=== PATIENT | male | born 1955 | race African-American/Black ===

== ENCOUNTER 2017-01-21 15:28 | Emergency (ER) | payer MEDICAID ==
[~2017-01-21] VITALS: Ht 175.3 cm; Wt 72.0 kg
[2017-01-21] MEDS ORDERED: MORPHINE SULFATE 4 MG/ML CPJ (NOT FOR IM USE) IV STA (21:25)
[2017-01-21] MEDS ORDERED: SODIUM CHLORIDE 0.9% 1,000 ML IV ONE (21:25)
[2017-01-21] MEDS ORDERED: ONDANSETRON HCL 4MG/2ML VIAL IV STA (21:25)
[2017-01-21 22:01] LABS: BASOPHILS % 0.5 % (0.0-2.0); EOSINOPHILS % 0.1 % (0.0-5.0); HEMATOCRIT. 36.8 % (42.0-52.0); HEMOGLOBIN. 12.7 g/dL (14.0-18.0); LYMPHOCYTES % 20.3 % (20.0-50.0); MEAN CORPUSCULAR HEMOGLOBIN 31.7 pg (28.0-32.0); MEAN CORPUSCULAR VOLUME 91.7 fL (80.0-94.0); MONOCYTES % 7.3 % (2.0-8.0); NEUTROPHILS % 71.8 % (40.0-76.0); PLATELET 262 x1000/uL (130-400); RED BLOOD CELL COUNT 4.01 mill/uL (4.7-6.1)
[2017-01-21 22:05] LABS: INR 1.1; PROTHROMBIN TIME 10.9 sec
[2017-01-21 22:12] LABS: CARBON DIOXIDE 29 mEq/L (21-32); CHLORIDE 103 mEq/L (98-107)
[2017-01-21 23:22] VITALS: BP 121/78
== END 2017-01-21 23:24 | disposition home or self-care (01) ==
LOC: ER 16:20
DX: K52.9 Noninfective gastroenteritis and colitis, unspecified (principal); F17.200 Nicotine dependence, unspecified, uncomplicated; F12.10 Cannabis abuse, uncomplicated
CPT/HCPCS: 36415; 74176; 80053; 83690; 85025; 85610; 96361; 96374; 96375; 99285; J2270; J2405; J7030

== ENCOUNTER 2024-11-05 04:42 | Inpatient (IN) | payer OTHER, MEDICAID, MEDICARE ==
[~2024-11-05] VITALS: Ht 175.3 cm; Wt 61.2 kg
[~2024-11-05 04:42] MED LIST: ATOR20TA65 MT; CLOP75TA15 PO; LIP40 PO
[2024-11-05 05:55] LABS: HEMATOCRIT. 37.4 % (42.0-52.0); HEMOGLOBIN. 12.5 g/dL (14.0-18.0); MEAN CORPUSCULAR HEMOGLOBIN 29.3 pg (28.0-32.0); MEAN CORPUSCULAR HGB CONC 33.4 g/dL (31.0-37.0); MEAN CORPUSCULAR VOLUME 87.8 fL (80.0-94.0); MEAN PLATELET VOLUME 8.5 fl (7.4-10.4); PLATELET 358 x1000/uL (130-400); RED BLOOD CELL COUNT 4.26 mill/uL (4.7-6.1); RED CELL DISTRIBUTION WIDTH 13.1 % (11.6-14.6); WHITE BLOOD COUNT 21.2 x1000/uL (4.5-11.0)
[2024-11-05 06:19] LABS: CHLORIDE 95 mEq/L (98-107); POTASSIUM 5.2 mEq/L (3.5-5.1); SODIUM 132 mEq/L (136-145)
[2024-11-05 06:20] LABS: CALCIUM 9.7 mg/dL (8.7-10.4); CARBON DIOXIDE 23 mEq/L (21-32)
[2024-11-05 06:25] LABS: CREATININE 0.8 mg/dL (0.6-1.3); GLUCOSE 106 mg/dL (70-105); TROPONIN I HIGH SENSITIVITY 38 ng/L (3.0-53)
[2024-11-05] MEDS: MORPHINE SULFATE 4 MG/ML INJ (FOR IV/IM USE) IV ONE ×2 (06:28→07:38)
[2024-11-05 06:29] LABS: DIFFERENTIAL COMMENT 1
[2024-11-05 06:32] LABS: ETHANOL BLOOD < 10 mg/dL (<10); UREA NITROGEN BLOOD < 5 mg/dL (9-23)
[2024-11-05 08:00] VITALS: BP 133/75; PULSE 55; RESP 16; TEMP 36; O2SAT 99
[2024-11-05 08:55] LABS: INR 1.1; PARTIAL THROMBOPLASTIN TIME 30.4 sec (23.4-31.0); PROTHROMBIN TIME 12.2 sec (9.6-11.0)
[2024-11-05] MEDS ORDERED: HYDRALAZINE 20MG/ML VIAL IV PRN (09:45)
[2024-11-05] MEDS ORDERED: IPRATROPIUM/ALBUTEROL 0.5-3(2.5)MG/3ML NEB HHN PRN (09:45)
[2024-11-05] MEDS ORDERED: DEXTROSE 50% WATER 50ML SYRINGE IV PRN (09:45)
[2024-11-05] MEDS ORDERED: ONDANSETRON HCL 4MG/2ML INJ IV PRN (09:45)
[2024-11-05] MEDS ORDERED: NALOXONE HCL 0.4MG/ML VIAL IV PRN (10:15)
[2024-11-05 10:34] LABS: PREALBUMIN < 5.0 mg/dl (10.0-40.0)
[2024-11-05 10:40] VITALS: BP 133/75; PULSE 55; RESP 16; TEMP 36.6
[2024-11-05 11:08] LABS: PLATELET ESTIMATE NORMAL
[2024-11-05 11:10] LABS: TOXIC VACUOLATION FEW
[2024-11-05 12:00] VITALS: BP 132/75; PULSE 61; RESP 17; TEMP 35.9; O2SAT 100
[2024-11-05] MEDS: CEFTRIAXONE 1GM/50ML 50 ML IV SCH (12:13)
[2024-11-05] MEDS: BLOOD SUGAR DIAGNOSTIC STRIP TEST SCH (12:40)
[2024-11-05] MEDS: MORPHINE SULFATE 2 MG/ML INJ (NOT FOR IM USE) IV PRN (12:55)
[2024-11-05 14:15] LABS: FERRITIN 171 ng/mL (22-322)
[2024-11-05 14:16] LABS: FOLIC ACID (FOLATE) SERUM 12.32 ng/mL (>5.38); VITAMIN B12 SERUM 325 pg/mL (211-911)
[2024-11-05 14:47] LABS: CLARITY URINE CLOUDY (CLEAR); COLOR URINE DARK YELLOW (YELLOW); GLUCOSE URINE NEGATIVE (NEGATIVE); KETONES URINE 2+ (NEGATIVE); LEUKOCYTE ESTERASE URINE NEGATIVE (NEGATIVE); NITRITE URINE NEGATIVE (NEGATIVE); OCCULT BLOOD URINE TRACE (NEGATIVE); PROTEIN URINE TRACE (NEGATIVE); SPECIFIC GRAVITY URINE 1.022 (1.005-1.030)
[2024-11-05] MEDS: SODIUM ZIRCONIUM CYCLOSILICATE 10GM/PACKET PO NR (14:59)
[2024-11-05] MEDS: PANTOPRAZOLE SODIUM 40 MG/VIAL IV SCH (14:59)
[2024-11-05 15:15] LABS: *AMPHETAMINES SCREEN URINE NEGATIVE (NEGATIVE); *BARBITURATES SCREEN URINE NEGATIVE (NEGATIVE); *BENZODIAZEPINES SCREEN URINE NEGATIVE (NEGATIVE); *COCAINE SCREEN URINE NEGATIVE (NEGATIVE)
[2024-11-05 15:16] LABS: CANNABINOID URINE SCREEN PRESUMPTIVE POSITIVE (NEGATIVE); ECSTASY MDMA SCREEN URINE NEGATIVE (NEGATIVE); METHADONE URINE SCREEN NEGATIVE (NEGATIVE); OPIATES URINE SCREEN PRESUMPTIVE POSITIVE (NEGATIVE); PHENCYCLIDINE URINE SCREEN NEGATIVE (NEGATIVE)
[2024-11-05 15:31] LABS: MUCUS URINE 3+ /lpf (NONE/TRACE)
[2024-11-05 15:36] LABS: HYALINE CASTS URINE 0-5 /lpf
[2024-11-05 15:37] LABS: RBC URINE 0-2 /hpf (0-2); SQUAMOUS EPITHELIAL CELL URINE FEW /lpf (RARE/1+)
[2024-11-05 15:38] LABS: BACTERIA URINE NONE SEEN
[2024-11-05 16:00] VITALS: BP 123/78; PULSE 58; RESP 17; TEMP 36; O2SAT 100
[2024-11-05 17:57] LABS: IRON 18 ug/dL (65-175)
[2024-11-05 18:00] LABS: CREATINE KINASE 29 IU/L (46-171); TOTAL IRON BINDING CAPACITY 424 ug/dl (250-425)
[2024-11-05 20:00] VITALS: BP 119/76; PULSE 66; RESP 19; TEMP 36.8; O2SAT 99
[2024-11-05] MEDS: ATORVASTATIN CALCIUM 40MG TABLET PO SCH (20:48)
[2024-11-06] VITALS: BP 122/76; PULSE 62; RESP 18; TEMP 36.1; O2SAT 95
[2024-11-06 03:47] LABS: CREATINE KINASE 24 IU/L (46-171)
[2024-11-06 04:00] VITALS: BP 115/73; PULSE 62; RESP 19; TEMP 36.4; O2SAT 99
[2024-11-06 08:04] VITALS: BP 115/70; PULSE 61; RESP 18; TEMP 36.5; O2SAT 98
[2024-11-06 08:51] LABS: HEMATOCRIT. 34.8 % (42.0-52.0); HEMOGLOBIN. 11.4 g/dL (14.0-18.0); MEAN CORPUSCULAR HGB CONC 32.7 g/dL (31.0-37.0); MEAN CORPUSCULAR VOLUME 88.6 fL (80.0-94.0); MEAN PLATELET VOLUME 8.3 fl (7.4-10.4); PLATELET 345 x1000/uL (130-400); RED BLOOD CELL COUNT 3.93 mill/uL (4.7-6.1); RED CELL DISTRIBUTION WIDTH 13.3 % (11.6-14.6); WHITE BLOOD COUNT 20.6 x1000/uL (4.5-11.0)
[2024-11-06 09:21] LABS: CARBON DIOXIDE 30 mEq/L (21-32); CHLORIDE 97 mEq/L (98-107); POTASSIUM 3.3 mEq/L (3.5-5.1); SODIUM 135 mEq/L (136-145)
[2024-11-06 09:22] LABS: CALCIUM 9.6 mg/dL (8.7-10.4); DIFFERENTIAL COMMENT 1
[2024-11-06 09:25] LABS: ALANINE AMINOTRANSFERASE < 7 IU/L (10-49); THYROID STIMULATING HORMONE 1.31 uIU/mL (0.55-4.78)
[2024-11-06 09:26] LABS: ALBUMIN 3.5 g/dL (3.2-4.8); BILIRUBIN DIRECT 0.2 mg/dL (<=3.0); BILIRUBIN TOTAL 0.6 mg/dL (0.1-1.0); PROTEIN TOTAL 6.6 g/dL (6.0-8.3); T4 FREE 1.33 ng/dL (0.89-1.76)
[2024-11-06 09:27] LABS: CREATININE 0.5 mg/dL (0.6-1.3); GLUCOSE 117 mg/dL (70-105); TRIGLYCERIDE 79 mg/dL (0-150); UREA NITROGEN BLOOD 5 mg/dL (9-23)
[2024-11-06 09:28] LABS: ASPARTATE AMINOTRANSFERASE < 8 IU/L (<34); CHOLESTEROL 88 mg/dL (<200); LDL CHOLESTEROL 41 mg/dL (5-100)
[2024-11-06 09:29] LABS: HDL CHOLESTEROL 27 mg/dL (>55)
[2024-11-06] MEDS: POTASSIUM CHLORIDE 20MEQ TABLET SR PO SCH (11:06)
[2024-11-06 12:53] VITALS: BP 122/82; PULSE 66; RESP 20; TEMP 35.5; O2SAT 99
[2024-11-06 12:58] LABS: PLATELET ESTIMATE NORMAL
[2024-11-06 17:18] VITALS: BP 130/83; PULSE 64; RESP 18; TEMP 37.1; O2SAT 96
[2024-11-06 20:00] VITALS: BP 112/71; PULSE 77; RESP 20; TEMP 36.3; O2SAT 99
[2024-11-07] VITALS: BP 114/65; PULSE 71; RESP 20; TEMP 36.3; O2SAT 98
[2024-11-07 04:00] VITALS: BP 118/62; PULSE 70; RESP 20; TEMP 36.4; O2SAT 99
[2024-11-07 06:01] LABS: CARBON DIOXIDE 28 mEq/L (21-32); CHLORIDE 95 mEq/L (98-107); POTASSIUM 3.2 mEq/L (3.5-5.1); SODIUM 134 mEq/L (136-145)
[2024-11-07 06:02] LABS: CALCIUM 9.4 mg/dL (8.7-10.4)
[2024-11-07 06:06] LABS: CREATININE 0.7 mg/dL (0.6-1.3)
[2024-11-07 06:07] LABS: GLUCOSE 93 mg/dL (70-105); UREA NITROGEN BLOOD 6 mg/dL (9-23)
[2024-11-07 06:24] LABS: BASOPHILS % 0.7 % (0.0-2.0); EOSINOPHILS % 5.2 % (0.0-5.0); HEMATOCRIT. 33.3 % (42.0-52.0); HEMOGLOBIN. 11.3 g/dL (14.0-18.0); LYMPHOCYTES % 9.7 % (20.0-50.0); MEAN CORPUSCULAR HEMOGLOBIN 29.3 pg (28.0-32.0); MEAN CORPUSCULAR HGB CONC 33.8 g/dL (31.0-37.0); MEAN CORPUSCULAR VOLUME 86.7 fL (80.0-94.0); MEAN PLATELET VOLUME 8.8 fl (7.4-10.4); NEUTROPHILS % 73.4 % (40.0-76.0); PLATELET 339 x1000/uL (130-400); RED BLOOD CELL COUNT 3.84 mill/uL (4.7-6.1); RED CELL DISTRIBUTION WIDTH 13.3 % (11.6-14.6); WHITE BLOOD COUNT 21.4 x1000/uL (4.5-11.0)
[2024-11-07 08:46] VITALS: BP 109/68; PULSE 68; RESP 20; TEMP 36.1; O2SAT 97
[2024-11-07] MEDS: LOSARTAN 50 MG TABLET PO SCH (10:13)
[2024-11-07] MEDS: FERROUS SULFATE 325MG TABLET PO SCH (10:13)
[2024-11-07] MEDS: POTASSIUM CHLORIDE 20MEQ TABLET SR PO NR (10:14)
[2024-11-07 12:13] VITALS: BP 117/68; PULSE 68; RESP 20; TEMP 37.1; O2SAT 98
[2024-11-07] MEDS ORDERED: FERR-63 PO (13:49)
[2024-11-07] MEDS ORDERED: LOSA50TA41 PO (13:49)
[2024-11-07] MEDS: MAGNESIUM 2 G PREMIX 50 ML IV NR (14:27)
[2024-11-07 16:31] VITALS: BP 109/75; PULSE 68; TEMP 98.7; O2SAT 98
[2024-11-07 16:34] VITALS: BP 109/75; PULSE 76; RESP 20; TEMP 37.2; O2SAT 100
== END 2024-11-07 17:35 | disposition short-term general hospital (02) | DRG 64 ==
LOC: ER 04:53 → EDBEDREQ 04:57 → 7WST 08:48 → EDBEDREQ 08:51 → EDBEDREQTM 08:51
PROVIDERS: ADMIT Hospitalist; ATTEND Hospitalist
DX: I62.00 Nontraumatic subdural hemorrhage, unspecified (principal); R53.2 Functional quadriplegia; I69.351 Hemiplegia and hemiparesis following cerebral infarction affecting right dominant side; E87.5 Hyperkalemia; D72.825 Bandemia; I10 Essential (primary) hypertension; D50.9 Iron deficiency anemia, unspecified; Z87.440 Personal history of urinary (tract) infections; Z74.01 Bed confinement status; Z85.46 Personal history of malignant neoplasm of prostate
CPT/HCPCS: 36415; 71045; 80048; 80061; 80076; 80305; 80320; 81003; 82550; 82607; 82728; 82746; 82962; 83036; 83540; 83550; 83605; 83735; 83880; 84100; 84134; 84145; 84439; 84443; 84484; 85025; 86850; 86900; 93005; 97165; 99291; A4606; J0696; J2270; J2470; J3475; G0480